=== PATIENT | female | born 1995 | race Caucasian/White ===

== ENCOUNTER 2019-03-26 18:21 | Emergency (ER) | payer MEDICAID ==
[2019-03-26 18:40] VITALS: BP 110/73; PULSE 100; RESP 18; TEMP 99.1; O2SAT 97
[2019-03-26] MEDS ORDERED: guaiFENesin 200 mg/10 ml Syrup UD PO ONE (19:29)
[2019-03-26] MEDS ORDERED: Albuterol-Ipratrop 3 mg / 0.5 (3 ml) UD IH STA (19:29)
--- NOTE | 2019-03-26 20:26 | ED PDOC ---
Arrival/HPI - General Chief Complaint: Cough, Cold, Congestion Time Seen by Provider: 03/26/19 18:27 Historian: Patient - History of Present Illness Narrative History of Present Illness (Text): 03/26/19 20:25 23-year-old female with no significant past medical history reports of a cough for the past 3 months. She states that the cough was initially productive with phlegm, states that for the past 3 days the cough has been more persistent. She reports no fever, chills, chest pain, shortness of breath, dyspnea, back pain, recent travel, sick contacts. PMD [place] Past Medical History - Infectious Disease Hx of Infectious Diseases: None - Reproductive Menopause: No - Psychiatric Hx Substance Use: No - Anesthesia Hx Anesthesia: No Family/Social History Family/Social History: No Known Family HX Smoking Status: Unknown If Ever Smoked Hx Alcohol Use: No Hx Substance Use: No Allergies/Home Meds Allergies/Adverse Reactions: Allergies No Known Allergies Allergy (Verified 03/26/19 18:40) Review of Systems - Review of Systems Constitutional: absent: Fatigue, Fevers ENT: absent: Sore Throat, Rhinorrhea, Sinus Congestion Respiratory: Cough, Sputum. absent: SOB Cardiovascular: absent: Chest Pain, Palpitations, Edema Gastrointestinal: absent: Abdominal Pain, Diarrhea, Vomiting Genitourinary Female: absent: Dysuria, Frequency, Hematuria Musculoskeletal: absent: Arthralgias, Back Pain, Neck Pain Skin: absent: Rash, Pruritis Neurological: absent: Headache, Dizziness Physical Exam Vital Signs Temp Pulse Resp BP Pulse Ox 03/26/19 18:37 99.1 F 100 H 18 110/73 97 Temperature: Afebrile Blood Pressure: Normal Pulse: Regular Respiratory Rate: Normal Appearance: Positive for: Well-Appearing, Non-Toxic, Comfortable Pain Distress: None Mental Status: Positive for: Alert and Oriented X 3 - Systems Exam Head: Present: Atraumatic, Normocephalic Pupils: Present: PERRL Extroacular Muscles: Present: EOMI Conjunctiva: Present: Normal Mouth: Present: Moist Mucous Membranes Neck: Present: Normal Range of Motion Respiratory/Chest: Present: Good Air Exchange, Rhonchi (+rhonchi to the RLL). No: Respiratory Distress, Accessory Muscle Use, Wheezes, Decreased Breath Sounds, Rales Cardiovascular: Present: Regular Rate and Rhythm, Normal S1, S2. No: Murmurs Back: Present: Normal Inspection Upper Extremity: Present: Normal Inspection. No: Cyanosis, Edema Lower Extremity: Present: Normal Inspection. No: Edema Neurological: Present: GCS=15, CN II-XII Intact, Speech Normal Skin: Present: Warm, Dry, Normal Color. No: Rashes Psychiatric: Present: Alert, Oriented x 3, Normal Insight, Normal Concentration Medical Decision Making ED Course and Treatment: 03/26/19 20:23 Plan : - CXR - Guiafenesin PO - Duoneb CXR : NAD. On reevaluation, patient remains awake alert and oriented 3 in no acute distress. X-ray results discussed with the patient, diagnosis of bronchitis discussed with the patient in great detail. Advised to follow up with primary care physician in 1-2 days without fail. Advised to take medication as prescribed. Return to the emergency room at any time for any new or worsening symptoms. Patient states she fully agrees with and understands discharge instructions. States that she agrees with the plan and disposition. Verbalized and repeated discharge instructions and plan. I have given the patient opportunity to ask any additional questions. - RAD Interpretation Radiology Orders: 03/26/19 19:29 CHEST TWO VIEWS (PA/LAT) [RAD] Stat - Medication Orders Current Medication Orders: Discontinued Medications Albuterol/Ipratropium (Duoneb 3 Mg/0.5 Mg (3 Ml) Ud) 3 ml IH STAT STA Stop: 03/26/19 19:30 Last Admin: 03/26/19 20:05 Dose: 3 ml Guaifenesin (Robitussin) 200 mg PO ONCE ONE Stop: 03/26/19 19:30 Last Admin: 03/26/19 20:05 Dose: 200 mg - PA / [employer] ADVISOR / Resident Statement / has reviewed & agrees with the documentation as recorded. Disposition/Present on Arrival - Present on Arrival Any Indicators Present on Arrival: No History of DVT/PE: No History of Uncontrolled Diabetes: No Urinary Catheter: No History of Decub. Ulcer: No History Surgical Site Infection Following: None - Disposition Have Diagnosis and Disposition been Completed?: Yes Diagnosis: Acute bronchitis Disposition: HOME/ ROUTINE Disposition Time: 20:40 Patient Plan: Discharge Condition: STABLE Discharge Instructions (ExitCare): Acute Bronchitis Additional Instructions: Thank you for letting us take care of you today. You were treated for acute bronchitis. The emergency medical care you received today was directed at your acute symptoms. If you were prescribed any medication, please fill it and take as directed. It may take several days for your symptoms to resolve. Return to the Emergency Department if your symptoms worsen, do not improve, or if you have any other problems. Please contact your doctor in 2 days for re-evaluation and follow up. Bring any paperwork you were given at discharge with you along with any medications you are taking to your follow up visit. Our treatment cannot replace ongoing medical care by a primary care provider (PCP) outside of the emergency department. Thank you for allowing the [facility] team to be part of your care today. If you had an X-Ray : A Radiologist will review the ED reading if any change in treatment is needed we will contact you. Prescriptions: Albuterol 0.083% [Albuterol Sulfate 3 Ml] 3 ml IH Q4 #100 neb Azithromycin [Z-Philippe] 250 mg PO DAILY #6 tab Guaifenesin [Adult Tussin Chest Congestion] 200 mg PO Q6H PRN #200 ml PRN Reason: Cough Nebulizer [Aeroeclipse II] 1 each MC DAILY #1 each Forms: [employer] (I[place]ic), WORK NOTE, SCHOOL NOTE
--- NOTE | 2019-03-27 08:36 | RAD ---
HISTORY: cough COMPARISON: None available. TECHNIQUE: Chest PA and lateral, 2 views FINDINGS: LUNGS: Subtle infiltrate or atelectasis at the right lung base. Please note that chest x-ray has limited sensitivity for the detection of pulmonary masses. PLEURA: No significant pleural effusion identified. No definite pneumothorax . CARDIOVASCULAR: The cardiomediastinal silhouette appears within normal limits of size. No atherosclerotic calcification present. OSSEOUS STRUCTURES: No acute osseous abnormality identified. VISUALIZED UPPER ABDOMEN: Unremarkable. OTHER FINDINGS: None. IMPRESSION: Subtle increased opacity at the right lung base may reflect atelectasis or developing infiltrate in the proper clinical setting. Study marked for PA review.
== END 2019-03-26 20:55 | disposition home or self-care (01) ==
LOC: ED 18:21
DX: J20.9 Acute bronchitis, unspecified (principal)